=== PATIENT | male | born 1980 | race African-American/Black ===

== ENCOUNTER 2017-12-19 06:02 | Day surgery (SDC) | payer OTHER ==
[2017-12-16 10:20] VITALS: BMI 26.0
[2017-12-19] MEDS ORDERED: LIDOCAINE HCL 2% (20ML MULTI-DOSE VIAL) NR ONE (07:10)
[2017-12-19] MEDS ORDERED: MIDAZOLAM HCL 2 MG/2 ML SINGLE DOSE VIAL ONE (07:45)
[2017-12-19] MEDS ORDERED: PROPOFOL 20 ML ONE ×2 (07:45)
[2017-12-19] MEDS ORDERED: KETOROLAC TROMETHAMINE 30 MG/1 ML VIAL ONE (08:18)
[2017-12-19] MEDS ORDERED: ONDANSETRON 4 MG/2 ML VIAL ONE ×2 (08:18→09:15)
[2017-12-19] MEDS ORDERED: DEXAMETHASONE SOD PHOSPHATE 4 MG/1 ML VIAL ONE (08:18)
[2017-12-19] MEDS ORDERED: LIDOCAINE HCL/PF 2% SDV 5ML VIAL ONE (08:18)
[2017-12-19] MEDS ORDERED: ceFAZolin SODIUM 1 GM VIAL ONE (08:18)
[2017-12-19] MEDS ORDERED: ONDANSETRON 4 MG/2 ML VIAL IVPUSH PRN (08:37)
[2017-12-19] MEDS ORDERED: oxyCODONE HCL 5 MG TABLET PO PRN (08:37)
[2017-12-19] MEDS ORDERED: LACTATED RINGERS SOLUTION 1,000 ML IV SCH (08:45)
--- NOTE | 2017-12-19 08:54 | OP ---
Operative Note - Note: Operative Date: 12/19/17 Pre-Operative Diagnosis: Left DeQuervain's Tenosynovitis Operation: Left DeQuervain's release Post-Operative Diagnosis: Same as Pre-op Surgeon: Jatin Glass Anesthesiologist/BILINGUAL ACCOUNT MANAGER: Ramez Cho Anesthesia: General Estimated Blood Loss (mls): 0 Operative Report Dictated: Yes
--- NOTE | 2017-12-19 09:51 | OP ---
DATE OF OPERATION: 12/19/2017 SURGEON: Jatin Glass MD PREOPERATIVE DIAGNOSIS: Left de Quervain tenosynovitis. POSTOPERATIVE DIAGNOSIS: Left de Quervain tenosynovitis. OPERATION PERFORMED: Left de Quervain release. ANESTHESIA: General with LMA. OPERATION DETAILS: Patient was correctly identified and brought to the operating room. Left upper extremity prepped and draped in the routine manner with Betadine scrub solution, wiped with alcohol, DuraPrep applied. Timeout was called and a bloodless field. A transverse incision was made just proximal to the radioscaphoid joint. The thickened retinacular tissue was noted. After longitudinal dissection performed, the actual appropriate cutaneous nerve seen and retracted out of harm's way. The sheath of the retinaculum was opened longitudinally with the 15 blade and all 3 tendons visualized and freed completely. The wound was lavaged with saline and the wound was closed as follows: 3-0 Monocryl and a light dressing applied. MD MARTIN Pfeiffer/[id number]
[2017-12-19] MEDS ORDERED: oxyCODONE HCL 5 MG TABLET ONE (10:05)
[2017-12-19 10:39] VITALS: TEMP 98
[2017-12-19 10:52] VITALS: BP 135/92; PULSE 68
== END 2017-12-19 10:45 | disposition home or self-care (01) ==
LOC: FASU 06:02
PROVIDERS: ATTEND Orthopaedic Surgery Orthopaedic Surgery of the Spine
PROC: 0L860ZZ Division of Left Lower Arm and Wrist Tendon, Open Approach (ICD-10-PCS; principal; 2017-12-19 08:32)
DX: M65.4 Radial styloid tenosynovitis [de Quervain] (principal)
CPT/HCPCS: 94760